=== PATIENT | female | born 1940 | race Caucasian/White ===

== ENCOUNTER 2024-07-15 18:12 | Emergency (ER) | payer MEDICAID ==
[~2024-07-15] VITALS: Ht 162.6 cm; Wt 70.0 kg
[2024-07-15 18:24] VITALS: TEMP 36.7; O2SAT 97
[2024-07-15 18:44] VITALS: O2SAT 96
[2024-07-15] MEDS: HYDROCODONE/ACETAMINOPHEN 5/325MG TABLET PO ONE (20:18)
[2024-07-15 22:06] VITALS: BP 198/89; PULSE 92; RESP 18
[2024-07-15] MEDS ORDERED: ACET-2708 MT (22:07)
[2024-07-15] MEDS ORDERED: IBUP-1523 MT (22:07)
== END 2024-07-15 22:46 | disposition home or self-care (01) ==
LOC: ER 18:12
DX: T14.8XXA Other injury of unspecified body region, initial encounter (principal); M25.512 Pain in left shoulder; I10 Essential (primary) hypertension; Z79.899 Other long term (current) drug therapy; W01.0XXA Fall on same level from slipping, tripping and stumbling without subsequent striking against object, initial encounter; Y93.89 Activity, other specified; Y92.89 Other specified places as the place of occurrence of the external cause; Y99.8 Other external cause status
CPT/HCPCS: 71045; 73030; 73060; 73523; 99284